=== PATIENT | female | born 1930 | race Caucasian/White ===

== ENCOUNTER 2016-11-18 10:56 | Inpatient (IN) | payer OTHER ==
[2016-11-18] MEDS ORDERED: NS 500 ML IV ONE (14:19)
[2016-11-18] MEDS ORDERED: VENOFER IV ONE (14:20)
[2016-11-18 14:57] LABS: MANUAL DIFF NEEDED? NO
[2016-11-18 15:02] LABS: BASO% 0.6 % (0.0-0.8); EOS# 0.12 X1000 (0.0-0.7); EOS% 2.5 % (0.0-10.0); HEMOGLOBIN 8.7 g/dL (12.0-16.0); LYMPH% 23.2 % (20.5-51.1); MCH 26.8 PG (27-31); MCV 89.2 FL (81-99); MONO# 0.46 X1000 (0.11-0.59); MONO% 9.7 % (1.7-9.3); PLT 134 X1000 (130-400); RBC 3.25 XMIL (4.2-5.4)
[2016-11-18 15:07] LABS: INR 1.07; PROTIME 11.3 Seconds (9.2-11.7)
[2016-11-18 15:36] LABS: CALCIUM 9.1 mg/dL (8.8-10.2); POTASSIUM 4.3 mmol/L (3.5-5.1)
[2016-11-18] MEDS ORDERED: VENOFER 300 MG in NS 250 ML IV ONE (16:00)
--- NOTE | 2016-11-18 16:09 | Diag Imaging Result Document ---
PROCEDURE NAME: CHEST-2 VIEWS - 11/18/2016 FRONTAL AND LATERAL CHEST, TWO VIEWS: COMPARISON: 01/31/2016. FINDINGS: The lungs are well expanded. The heart is not enlarged. The pulmonary vessels are small. No pleural effusions. There are no infiltrates. There has been prior orthopaedic replacement of the left shoulder. Minimal markings in the right base believed to be atelectasis. IMPRESSION: No acute abnormality.
--- NOTE | 2016-11-18 16:29 | EKG Report ---
Test Performed on : 11/18/2016 2:29:12 PM Test Reason : chest pain Blood Pressure : / mmHG Vent. Rate : 087 BPM Atrial Rate : 087 BPM P-R Int : 210 ms QRS Dur : 122 ms QT Int : 376 ms P-R-T Axes : 065 075 039 degrees QTc Int : 452 ms Sinus rhythm. with marked sinus arrhythmia. with 1st degree AV block. (variable) Incomplete right bundle branch block Abnormal ECG When compared with ECG of 10-SEP-2016 05:50, Nonspecific T wave abnormality Confirmed by Jaswinder Knott DO ([id number]) on 11/20/2016 6:08:54 PM
[2016-11-18] MEDS: ULTRAM PO SCH (16:45)
[2016-11-18 17:33] LABS: ALLEN TEST YES; BE 3.7 mmoll (-3.0-3.0); BLOOD TYPE ARTERIAL; DRAW SITE R RADIAL; METHB 1.1 % (0.0-1.5); O2(CT) 11.2 mL/dL (15.0-23.0); PO2(98.6) 98 mmHg (60-100); SAMPLE BLOOD; THB 8.1 g/dL (11.5-17.4); pH(98.6) 7.37 (7.35-7.45)
[2016-11-18 17:34] LABS: MODALITY CANNULA
[2016-11-18 17:35] LABS: PCO2(98.6) 51 mmHg (35-45)
--- NOTE | 2016-11-18 21:36 | HISTORY AND PHYSICAL ---
CHIEF COMPLAINT: Low blood pressure. Tachycardia. Anemia. Pale looking. Leg cramps. Black stools, heme-positive. HISTORY OF PRESENT ILLNESS: In brief, she is an 85-year-old white female, who came to the office today with the above symptoms. Blood pressure 100 x 60 while sitting, tachycardic, 110, pale looking, hematocrit was 29, heme-positive stool. She was admitted 3 months ago. At that time, she had a workup done by Dr. Jay. She had esophagitis with dilatation of stricture. She failed to improve with outpatient iron replacement therapy. In light of existing heart disease and peripheral vascular disease, restless leg syndrome, she has been hospitalized for workup. She might need a unit of blood as well as iron infusion. As a result, a hospital admission was warranted. PAST MEDICAL HISTORY: COPD. CAD. Esophageal stricture. Hypertension. Hypothyroidism. Depression. Osteoarthritis. L3 compression fracture. Paroxysmal atrial tachycardia. Peripheral vascular disease. ERIN 0.7. Restless leg syndrome. Incontinence of urine. Hypothyroidism. PAST SURGICAL HISTORY: Cholecystectomy. Hysterectomy. Cervical vertebral fusion. CAD with stents. Bilateral cataract surgery. Right hip replacement. Left shoulder replacement. MEDICATIONS: Requip 5 mg daily, potassium 10 mEq p.o. b.i.d., Hyzaar 100/12.5 daily, Icar C-Plus 1 tablet daily, Zofran as needed, tramadol 50 p.o. t.i.d., Cardizem 60 p.o. b.i.d., Seroquel 25 at bedtime, Celebrex 200 daily, Pletal 50 daily, Cymbalta 60 daily, Synthroid 80 mcg daily, Risperdal 0.5 mg daily, vitamin D 50,000 once a week. ALLERGIES: Codeine and penicillin. 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 No smoking. No alcohol. FAMILY HISTORY: Father of heart attack 79. Mom of cancer, not known. HEALTH MAINTENANCE: Flu shot 2015. Pneumonia 2012. Last EGD December by Dr. Jay. REVIEW OF SYSTEMS: HEENT: No headache. No dizziness. No earache. No sore throat. Neck: No goiter. No lymphadenopathy. No bruit. Cardiopulmonary: No chest pain. Shortness of breath on exertion. No wheezing. GI: No nausea, vomiting, abdominal pain, passing black stools. : No history of hesitancy, frequency. No swelling of feet. No joint pains. Leg cramps. Neurologic: No focal symptoms or weakness. PHYSICAL EXAMINATION: VITAL SIGNS: Stable. Tachycardic. Blood pressure is 129/69. HEENT: Atraumatic, normocephalic. Pupils equal, react to light. Slightly pale. TMs are normal. Nose and throat within normal limits. NECK: Supple. No lymphadenopathy. No goiter. CHEST: Bilateral air entry. HEART: Sounds are regular. Tachycardic. ABDOMEN: Belly is soft, nontender. Good bowel sounds. Positive stools. No peripheral edema, cyanosis, clubbing. NEUROLOGIC: Nonfocal. INVESTIGATIONS: White cell count 4.7, hemoglobin 8, hematocrit 29, MCV is normal. PT/INR is normal. SMA 7 is normal. Creatinine is 1.2. Iron is 25. Iron saturation is high. ProBNP is normal. B12 and TSH normal. Chest x-ray: COPD. EKG sinus. Nothing acute. ASSESSMENT AND PLAN: 1. An 85-year-old white female, admitted to the hospital with symptomatic anemia in light of existing heart disease, peripheral vascular disease, complaints of restless legs syndrome, exertional shortness of breath, with underlying chronic obstructive pulmonary disease. Unable to improve with oral iron replacement therapy for the last 3 months. 2. Iroin infusion, unit of packed red blood cells. Previous esophagogastroduodenoscopy and colonoscopy in August was negative. 3. Chronic obstructive pulmonary disease. Continue on oxygen. 4. Reconcile home medications. Coronary artery disease stable. Follow up on the labs in the morning and hopefully will be discharged within 48 hours. [facility]
[2016-11-18] MEDS: SEROQUEL PO SCH (22:01)
[2016-11-18] MEDS: CARDIZEM PO SCH (22:01)
[2016-11-19] MEDS: SYNTHROID PO SCH (06:53)
--- NOTE | 2016-11-19 08:01 | Diag Imaging Result Document ---
PROCEDURE NAME: CHEST-PORTABLE - 11/18/2016 SINGLE FRONTAL RADIOGRAPH OF THE CHEST: COMPARISON: 11/18/2016. FINDINGS: No new consolidations are identified. There may be minimal atelectasis at the lung bases. Cardiac silhouette is stable. IMPRESSION: Stable chest.
[2016-11-19] MEDS ORDERED: PLETAL PO SCH (09:00)
[2016-11-19 09:03] LABS: MANUAL DIFF NEEDED? NO
[2016-11-19 09:31] LABS: BASO% 0.2 % (0.0-0.8); EOS# 0.14 X1000 (0.0-0.7); EOS% 1.7 % (0.0-10.0); HEMATOCRIT 33.5 % (37.0-47.0); HEMOGLOBIN 10.1 g/dL (12.0-16.0); LYMPH# 1.34 X1000 (1.2-3.4); LYMPH% 16.4 % (20.5-51.1); MCH 26.4 PG (27-31); MCHC 30.1 g/dL (33-37); MCV 87.7 FL (81-99); MONO# 0.84 X1000 (0.11-0.59); MONO% 10.3 % (1.7-9.3); MPV 10.8 FL (7.4-10.4); NEUT% 71.4 % (42.2-75.2); PLT 141 X1000 (130-400); RBC 3.82 XMIL (4.2-5.4)
[2016-11-19 09:34] LABS: POTASSIUM 3.7 mmol/L (3.5-5.1)
[2016-11-19] MEDS: CARDIZEM PO SCH ×2 (09:57→21:30)
[2016-11-19] MEDS: RISPERDAL PO SCH (09:57)
[2016-11-19] MEDS: CELEBREX PO SCH (09:57)
[2016-11-19] MEDS: ULTRAM PO SCH ×3 (09:58→16:53)
[2016-11-19] MEDS: CYMBALTA PO SCH (09:58)
[2016-11-19] MEDS: SEROQUEL PO SCH (21:30)
[2016-11-20] MEDS ORDERED: PNEUMOVAX 23 IM ONE (02:03)
[2016-11-20 03:52] VITALS: BP 157/70
[2016-11-20] MEDS: SYNTHROID PO SCH (06:12)
[2016-11-20] MEDS: CARDIZEM PO SCH (08:52)
[2016-11-20] MEDS: CELEBREX PO SCH (08:52)
[2016-11-20] MEDS: CYMBALTA PO SCH (08:52)
[2016-11-20] MEDS: RISPERDAL PO SCH (08:52)
--- NOTE | 2016-11-20 20:55 | DISCHARGE SUMMARY ---
ADMISSION DATE: 11/18/2016 DISCHARGE DATE: 11/20/2016 DISCHARGING DIAGNOSIS: Symptomatic anemia due to occult gastrointestinal bleeding. SECONDARY DIAGNOSIS: 1. Chronic obstructive pulmonary disease, on oxygen. 2. Coronary artery disease. 3. Esophageal stricture with dilatation. 4. Hypertension. 5. Hypothyroidism. 6. Depression. 7. Osteoarthritis. 8. L3 compression fracture. 9. Paroxysmal atrial tachycardia. 10. Peripheral vascular disease. ERIN 0.7 with restless leg syndrome. 11. Incontinence of urine. 12. Hypothyroidism. PROCEDURES: 1. Transfusion of 1 unit of packed RBCs. 2. Iodine infusion 300 mg. 3. Hemoccult stools were positive x2. BRIEF HISTORY: Please see the H and P that was done on 11/18/2016. In brief, she is an 85-year- old white female, who was admitted to the hospital with low blood pressure, tachycardia, anemia, worsening of shortness of breath on exertion and restless leg syndrome. She has a history of existing heart disease and peripheral vascular disease. She has heme-positive stools and recently EGD colonoscopy were negative by Dr. Jay. The patient was given a unit of blood as well as iron infusion. Followup laboratories as follows: CBC: White cell count 8.1, hematocrit 33.5, platelet count 141,000. ABG: PH is 7.37, pCO2 50, PO2 98. SMA 7: Sodium 139, potassium 3.7, chloride 101, BUN 20, creatinine 1, glucose 122, iron is low, TIBC is high, proBNP, B12, TSH was normal. DISCHARGE INSTRUCTIONS: Patient was discharged home with the following instructions: 1. Continue to monitor outpatient Hemoccult stools. 2. Icar C Plus 1 tablet daily and if she continues losing blood, consider capsule endoscopy and re-examining gastrointestinal workup. Home medications as follows: 1. Ultram 50 mg t.i.d. 2. Seroquel 25 at bedtime. 3. Requip 5 mg daily. 4. Potassium 10 mEq p.o. b.i.d. 5. Cymbalta 60 daily. 6. Celebrex 200 daily. 7. Cardizem 60 p.o. b.i.d. 8. Pletal 50 daily. 9. Hyzaar 100/12.5 half tablet daily. 10. Risperidone 1 tablet, 0.5 mg daily. 11. Synthroid 88 mcg daily. 12. Also, we will hold the Celebrex if continue to test positive for heme-positive stools. Follow up in my office next week.
== END 2016-11-20 10:07 | disposition home or self-care (01) | DRG 812 ==
LOC: DIRADM 10:56 → 4N 11:25
PROVIDERS: ADMIT Internal Medicine; ATTEND Internal Medicine
PROC: 30233N1 Transfusion of Nonautologous Red Blood Cells into Peripheral Vein, Percutaneous Approach (ICD-10-PCS; principal; 2016-11-18)
DX: D50.0 Iron deficiency anemia secondary to blood loss (chronic) (principal); Z99.81 Dependence on supplemental oxygen; J44.9 Chronic obstructive pulmonary disease, unspecified; R19.5 Other fecal abnormalities; I25.10 Atherosclerotic heart disease of native coronary artery without angina pectoris; I10 Essential (primary) hypertension; E03.9 Hypothyroidism, unspecified; G25.81 Restless legs syndrome; I73.9 Peripheral vascular disease, unspecified; M19.90 Unspecified osteoarthritis, unspecified site; R32 Unspecified urinary incontinence; F32.9 Major depressive disorder, single episode, unspecified; Z23 Encounter for immunization; Z79.899 Other long term (current) drug therapy; Z79.1 Long term (current) use of non-steroidal anti-inflammatories (NSAID); Z95.5 Presence of coronary angioplasty implant and graft; Z96.641 Presence of right artificial hip joint; Z96.612 Presence of left artificial shoulder joint; Z98.1 Arthrodesis status; Z82.49 Family history of ischemic heart disease and other diseases of the circulatory system; Z80.9 Family history of malignant neoplasm, unspecified
CPT/HCPCS: 71010; 71020; 80048; 82272; 82607; 82805; 83540; 83550; 83880; 84443; 85025; 85610; 86850; 86900; 86901; 86920; 90732; 93005; 93010; J1756; J7040; J7050; P9016